=== PATIENT | male | born 1950 | race Hispanic/Latino ===

== ENCOUNTER 2017-07-02 15:35 | Observation (INO) | payer BC, OTHER ==
--- NOTE | 2017-07-02 16:17 | ED PDOC ---
HPI: Chest Pain Time Seen by Provider: 07/02/17 16:01 Chief Complaint (Nursing): Chest Pain Chief Complaint (Provider): CP History Per: Patient History/Exam Limitations: no limitations Additional Complaint(s): Pt reports midsternal CP X 5 days, intermittent, now radiating down L arm. Denies SOB, nausea, palpitations. Last stress test summer 2015. Also reports leg swelling X few months, no calf pain. Past Medical History Reviewed: Nursing Documentation, Vital Signs Vital Signs: Last Vital Signs Temp 974.7 F H 07/03/17 07:56 Pulse 76 07/03/17 07:56 Resp 18 07/03/17 07:56 BP 115/84 07/03/17 07:56 Pulse Ox 95 07/03/17 07:56 - Medical History PMH: Asthma, Rheumatoid Arthritis Denies: Chronic Kidney Disease Other PMH: Testicular CA, lymphoma - Surgical History Other surgeries: Tumor resection - Family History Family History: States: Unknown Family Hx - Social History Current smoker - smoking cessation education provided: No Alcohol: None - Immunization History Hx Tetanus Toxoid Vaccination: No Hx Influenza Vaccination: Yes Hx Pneumococcal Vaccination: No - Home Medications Home Medications: Ambulatory Orders Medication Instructions Recorded Testosterone [Androgel] 2.5 gm TD DAILY 08/09/16 Montelukast [Singulair] 10 mg PO HS #30 tab 08/10/16 Acetaminophen [Tylenol 325mg tab] 650 mg PO Q4 PRN 07/02/17 Mv,[place],Min/Iron/Folic Acid/Lut 1 tab PO DAILY 07/02/17 [Complete Multi Tablet] Polyethylene Glycol/Polyvinyl 1 drop RIGHTEYE BID 07/02/17 [Artificial Tears] Polyethylene Glycol/Polyvinyl 1 drop RIGHTEYE DAILY PRN 07/02/17 [Artificial Tears] Aspirin [Ecotrin] 81 mg PO DAILY #30 tabec 07/03/17 - Allergies Allergies/Adverse Reactions: Allergies Allergy/AdvReac Type Severity Reaction Status Date / Time No Known Allergies Allergy Verified 07/02/17 15:46 XIOMARA Risk Score for UA/NSTEMI - XIOMARA Risk Score Age > 64: YES 3 or more CAD Risk Factors: NO Known CAD (Stenosis greater than 50%): NO Aspirin use in past 7 days: NO Severe Angina: NO EKG ST changes greater than 0.5mm: NO Positive Cardiac Marker: NO XIOMARA Score: 1 Risk %: 5% Wells Criteria for PE - Wells Criteria for Pulmonary Embolism Clinical Signs and Symptoms of DVT: No P.E is #1 Diagnosis, or Equally Likely: No Heart Rate >100: No Immobilization at least 3 days;Surgery previous 4 weeks: No Previous, objectively diagnosed PE or DVT: No Hemoptysis: No Malignancy w/treatment within 6 months, or palliative: No Total Score: 0 Review of Systems Constitutional: Negative for: Fever, Chills Cardiovascular: Positive for: Chest Pain. Negative for: Palpitations Respiratory: Negative for: Cough, Shortness of Breath Gastrointestinal: Negative for: Nausea, Vomiting, Abdominal Pain, Diarrhea Genitourinary Male: Negative for: Dysuria, Hematuria Physical Exam - Reviewed Nursing Documentation Reviewed: Yes Vital Signs Reviewed: Yes - Physical Exam Appears: Positive for: Well, No Acute Distress Head Exam: Positive for: ATRAUMATIC Skin: Positive for: Normal Color, Warm, Dry Neck: Positive for: Normal Cardiovascular/Chest: Positive for: Regular Rate, Rhythm Respiratory: Positive for: Normal Breath Sounds. Negative for: Rales, Rhonchi, Wheezing Gastrointestinal/Abdominal: Positive for: Normal Exam, Bowel Sounds, Soft Back: Positive for: Normal Inspection Extremity: Positive for: Normal ROM, Pedal Edema, Swelling. Negative for: Tenderness, Calf Tenderness, Deformity Neurologic/Psych: Positive for: Alert, bolt loader II-XII, Oriented - Laboratory Results Result Diagrams: 07/02/17 16:20 07/02/17 16:20 - ECG Interpretation Of ECG: NSR @ 75, no ST-T changes. O2 Sat by Pulse Oximetry: 96 Pulse Ox Interpretation: Normal Medical Decision Making Medical Decision Makin yo male with chest pain. - labs - EKG - CXR Accession No. : [id number] Patient Name / ID : RACHELLE RUIZ / [id number] Exam Date : 07/02/2017 16:40:05 ( Approved ) Study Comment : Sex / Age : M / 66Y Creator : sudeep toribio Dictator : Personal Lines Account Manager : Business Functional Analyst : Quintin Lott MD Approver2 : Report Date : 07/02/2017 16:52:11 My Comment : HISTORY: CP COMPARISON: Comparison chest dated 08/23/2014 FINDINGS: LUNGS: No acute consolidation however there may be some minimal bibasilar scarring PLEURA: No significant pleural effusion identified, no pneumothorax apparent. CARDIOVASCULAR: Sternotomy wires again noted. OSSEOUS STRUCTURES: No old fracture deformity left anterior 2nd rib, left posterior 3rd rib and left clavicle unchanged VISUALIZED UPPER ABDOMEN: Normal. OTHER FINDINGS: None. IMPRESSION: Suspect minimal bibasilar scarring. No other significant changes. Disposition - Clinical Impression Clinical Impression: Chest pain - Patient ED Disposition Is Patient to be Admitted: Yes - Disposition Disposition Time: 18:58 Condition: STABLE - Pt Status Changed To: Hospital Disposition Of: Observation - POA Present On Arrival: None
[2017-07-02 16:54] LABS: INR 1.1 (0.9-1.2); PARTIAL THROMBOPLASTIN TIME 38.8 Seconds (25.6-37.1); PROTHROMBIN TIME 12.7 Seconds (9.8-13.1)
[2017-07-02 16:55] LABS: BASO % 0.3 % (0.0-2.0); EOS # 0.2 K/uL (0.0-0.7); EOS % 3.9 % (0.0-4.0); HEMOGLOBIN 15.8 g/dL (12.0-18.0); LYMPH # 0.8 K/uL (1.0-4.3); LYMPH % 14.6 % (20.0-40.0); MEAN CELL VOLUME 94.9 fl (80.0-94.0); MEAN CORPUSCULAR HEMOGLOBIN 31.8 pg (27.0-31.0); MEAN CORPUSCULAR HGB CONC 33.5 g/dL (33.0-37.0); MEAN PLATELET VOLUME 10.8 fl (7.2-11.7); MONO # 0.6 K/uL (0.0-0.8); MONO % 10.1 % (0.0-10.0); NEUT # 4.1 K/uL (1.8-7.0); NEUT % 71.1 % (50.0-75.0); NRBC % 0.1 % (0.0-0.0); RBC 4.99 Mil/uL (4.40-5.90); WHITE BLOOD COUNT 5.8 K/uL (4.8-10.8)
[2017-07-02 17:00] LABS: ALB/GLOB RATIO 1.5 (1.0-2.1); ALBUMIN 4.1 g/dL (3.5-5.0); ALT/SGPT 44 U/L (21-72); AST/SGOT 24 U/L (17-59); BLOOD UREA NITROGEN 17 mg/dl (9-20); GFR AFRICAN-AMERICAN > 60; GFR NON-AFRICAN AMERICAN > 60
--- NOTE | 2017-07-02 17:09 | RAD ---
HISTORY: CP COMPARISON: Comparison chest dated 08/23/2014 FINDINGS: LUNGS: No acute consolidation however there may be some minimal bibasilar scarring PLEURA: No significant pleural effusion identified, no pneumothorax apparent. CARDIOVASCULAR: Sternotomy wires again noted. OSSEOUS STRUCTURES: No old fracture deformity left anterior 2nd rib, left posterior 3rd rib and left clavicle unchanged VISUALIZED UPPER ABDOMEN: Normal. OTHER FINDINGS: None. IMPRESSION: Suspect minimal bibasilar scarring. No other significant changes.
[2017-07-02 17:34] LABS: CALCIUM 8.9 mg/dL (8.4-10.2)
[2017-07-02 17:35] LABS: URINE BACTERIA RARE (<OCC); URINE BILIRUBIN NEGATIVE (NEGATIVE); URINE BLOOD NEGATIVE (NEGATIVE); URINE CLARITY CLEAR (Clear); URINE COLOR COLORLESS (YELLOW); URINE GLUCOSE (UA) NEG (Normal); URINE LEUKOCYTE ESTERASE NEG Leu/uL (Negative); URINE PROTEIN NEGATIVE (NEGATIVE); URINE UROBILINOGEN 0.2-1.0 mg/dL (0.2-1.0)
--- NOTE | 2017-07-02 18:34 | US ---
PROCEDURE: Bilateral lower extremity venous duplex Doppler. HISTORY: Leg swelling COMPARISON: None available. TECHNIQUE: Bilateral common femoral, superficial femoral, popliteal and posterior tibial veins were evaluated. Flow was assessed with color Doppler, compressibility, assessment of phasic flow and augmentation response. FINDINGS: COMMON FEMORAL VEIN: Right CFV: Unremarkable. Left CFV: Unremarkable. SUPERFICIAL FEMORAL VEIN: Right SFV: Unremarkable. Left SFV: Unremarkable. POPLITEAL VEIN: Right Popliteal: Unremarkable. Left Popliteal: Unremarkable. POSTERIOR TIBIAL VEIN: Right PTV: Unremarkable. Left PTV: Unremarkable. OTHER FINDINGS: None. IMPRESSION: No evidence of deep venous thrombosis.
[2017-07-02 22:21] VITALS: RESP 18
[2017-07-02] MEDS ORDERED: Artificial Tears Opht Soln OD PRN (23:54)
[2017-07-03 05:57] LABS: HDL CHOLESTEROL 33 MG/DL (30-70)
[2017-07-03 06:09] LABS: LDL CHOLESTEROL 66 mg/dL (0-129)
[2017-07-03 06:13] LABS: T4 4.98 ug/dl (5.5-11.0)
[2017-07-03 07:56] VITALS: BP 115/84; PULSE 76; TEMP 974.7
--- NOTE | 2017-07-03 08:56 | CP.PCM.CON ---
History of Present Illness - History of Present Illness History of Present Illness: This 66-year-old otherwise healthy patient came into the emergency room after experiencing a vague sense of chest discomfort in the middle of the chest for almost 6 days off and on (according to the patient almost continuously) quite unaffected by physical activities such as walking 5-6 blocks or climbing couple flights of stairs to get to his apartment. He has never been a smoker. He was treated for hypertension. His back but has been off of any medications for a few years. He has never been a diabetic. He has never experienced any effort related chest pain or prior myocardial infarction. He denies any past history of significant medical issues. His father had coronary bypass graft surgery. Otherwise there is nobody in the family with vascular issues. Physical examination shows a middle aged pleasant man alert awake and coherent. Afebrile with a pulse rate of 68 bpm and regular and a blood pressure of 116/70 mmHg. His jugular venous pressure was not elevated and there was no edema hour his lower extremities. The pedal pulses were well felt. There were no carotid bruits. The extremities were warm and his nailbeds were pink. There was no central or peripheral cyanosis. His respiratory rate was 14 breaths per minute. The apex was not palpable. The first and second heart sounds were normal. There was no gallop and there were no murmurs. Abdomen was soft liver and spleen are not palpable. Electro-cardiogram at admission to the emergency room showed sinus rhythm with a normal EKG pattern. An electro-cardiogram done this morning again shows sinus rhythm with a normal EKG pattern. There is no ischemic changes and no Q waves detected on the electric cardiogram. 2 sets of cardiac enzymes were negative for any evidence of myocyte injury per the area and the rest of his lab data was noted Impression: Atypical chest pain. No evidence of acute coronary syndrome. The patient is chest pain-free and hemodynamically stable and may be allowed to return home to continue management as an outpatient. 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) - RENAL Hx Chronic Kidney Disease: No - ENDOCRINE/METABOLIC Hx Endocrine Disorders: No - HEMATOLOGICAL/ONCOLOGICAL Hx Blood Disorders: No - INTEGUMENTARY Hx Dermatological Problems: No - MUSCULOSKELETAL/RHEUMATOLOGICAL Hx Musculoskeletal Disorders: Yes Hx Falls: No Hx Rheumatoid Arthritis: Yes - GASTROINTESTINAL Hx Gastrointestinal Disorders: No - GENITOURINARY/GYNECOLOGICAL Hx Genitourinary Disorders: Yes Other/Comment: testicular ca - PSYCHIATRIC Hx Psychophysiologic Disorder: No Hx Substance Use: No - SURGICAL HISTORY Hx Surgeries: Yes Other/Comment: Right Orchiectomy,,, RIGHT EYE LID LYMPHOMA - ANESTHESIA Hx Anesthesia: Yes Hx Anesthesia Reactions: No Hx Malignant Hyperthermia: No Has any member of the family had a problem w/ anesthesia?: No Meds Allergies/Adverse Reactions: Allergies Allergy/AdvReac Type Severity Reaction Status Date / Time No Known Allergies Allergy Verified 07/02/17 15:46 - Medications Medications: Current Medications Acetaminophen (Tylenol 325mg Tab) 650 mg PO Q4 PRN PRN Reason: Pain, moderate (4-7) Artificial Tears (Artificial Tears) 1 drop OD BID [facility] Last Admin: 07/03/17 08:48 Dose: 1 drop Artificial Tears (Artificial Tears) 1 drop OD DAILY PRN PRN Reason: Itching / Pruritus Aspirin (Ecotrin) 81 mg PO DAILY [facility] Last Admin: 07/03/17 08:49 Dose: 81 mg Enoxaparin Sodium (Lovenox) 40 mg SC DAILY [facility] PRN Reason: Protocol Last Admin: 07/03/17 08:47 Dose: 40 mg Montelukast Sodium (Singulair) 10 mg PO [facility] Results - Vital Signs Recent Vital Signs: Last Vital Signs Temp 974.7 F H 07/03/17 07:56 Pulse 76 07/03/17 07:56 Resp 18 07/03/17 07:56 BP 115/84 07/03/17 07:56 Pulse Ox 95 07/03/17 07:56 - Labs Result Diagrams: 07/02/17 16:20 07/02/17 16:20 Labs: Laboratory Results - last 24 hr 07/02/17 07/02/17 07/02/17 16:20 16:20 16:20 WBC 5.8 RBC 4.99 Hgb 15.8 Hct 47.3 MCV 94.9 H MCH 31.8 H MCHC 33.5 RDW 13.0 Plt Count 137 MPV 10.8 Neut % (Auto) 71.1 Lymph % (Auto) 14.6 L [place] % (Auto) 10.1 H Eos % (Auto) 3.9 Baso % (Auto) 0.3 Neut # (Auto) 4.1 Lymph # (Auto) 0.8 L [place] # (Auto) 0.6 Eos # (Auto) 0.2 Baso # (Auto) 0.0 PT 12.7 INR 1.1 APTT 38.8 H D-Dimer, Quantitative 163 Sodium 143 Potassium 4.2 Chloride 103 Carbon Dioxide 28 Anion Gap 16 BUN 17 Creatinine 1.1 Est GFR ( Amer) > 60 Est GFR (Non-Af Amer) > 60 Random Glucose 93 Calcium 8.9 Total Bilirubin 0.3 AST 24 ALT 44 Alkaline Phosphatase 48 Troponin I < 0.0120 Total Protein 6.8 Albumin 4.1 Globulin 2.7 Albumin/Globulin Ratio 1.5 Triglycerides Cholesterol LDL Cholesterol Direct HDL Cholesterol Thyroxine (T4) TSH 3rd Generation Urine Color Urine Clarity Urine pH Ur Specific [place] Urine Protein Urine Glucose (UA) Urine Ketones Urine Blood Urine Nitrate Urine Bilirubin Urine Urobilinogen Ur Leukocyte Esterase Urine RBC (Auto) Urine Microscopic WBC Urine Bacteria 07/02/17 07/03/17 17:10 04:20 WBC RBC Hgb Hct MCV MCH MCHC RDW Plt Count MPV Neut % (Auto) Lymph % (Auto) [place] % (Auto) Eos % (Auto) Baso % (Auto) Neut # (Auto) Lymph # (Auto) [place] # (Auto) Eos # (Auto) Baso # (Auto) PT INR APTT D-Dimer, Quantitative Sodium Potassium Chloride Carbon Dioxide Anion Gap BUN Creatinine Est GFR ( Amer) Est GFR (Non-Af Amer) Random Glucose Calcium Total Bilirubin AST ALT Alkaline Phosphatase Troponin I < 0.0120 Total Protein Albumin Globulin Albumin/Globulin Ratio Triglycerides 73 Cholesterol 116 LDL Cholesterol Direct 66 HDL Cholesterol 33 Thyroxine (T4) 4.98 L TSH 3rd Generation 2.61 Urine Color Colorless Urine Clarity Clear Urine pH 6.0 Ur Specific [place] < 1.005 Urine Protein Negative Urine Glucose (UA) Neg Urine Ketones Negative Urine Blood Negative Urine Nitrate Negative Urine Bilirubin Negative Urine Urobilinogen 0.2-1.0 Ur Leukocyte Esterase Neg Urine RBC (Auto) 2 Urine Microscopic WBC < 1 Urine Bacteria Rare
[2017-07-03] MEDS ORDERED: Enoxaparin 40 mg Syringe SC SCH (09:00)
[2017-07-03] MEDS ORDERED: Artificial Tears Opht Soln OD SCH (09:00)
--- NOTE | 2017-07-03 09:25 | CP.PCM.DIS ---
Provider - Provider Date of Admission: 07/02/17 18:58 Attending physician: Renzo Araujo MD Time Spent in preparation of Discharge (in minutes): 35 Diagnosis - Discharge Diagnosis (1) Chest pain Status: Acute Hospital Course - Lab Results Lab Results: Most Recent Lab Values WBC 5.8 K/uL (4.8-10.8) 07/02/17 16:20 RBC 4.99 Mil/uL (4.40-5.90) 07/02/17 16:20 Hgb 15.8 g/dL (12.0-18.0) 07/02/17 16:20 Hct 47.3 % (35.0-51.0) 07/02/17 16:20 MCV 94.9 fl (80.0-94.0) H 07/02/17 16:20 MCH 31.8 pg (27.0-31.0) H 07/02/17 16:20 MCHC 33.5 g/dL (33.0-37.0) 07/02/17 16:20 RDW 13.0 % (11.5-14.5) 07/02/17 16:20 Plt Count 137 K/uL (130-400) 07/02/17 16:20 MPV 10.8 fl (7.2-11.7) 07/02/17 16:20 Neut % (Auto) 71.1 % (50.0-75.0) 07/02/17 16:20 Lymph % (Auto) 14.6 % (20.0-40.0) L 07/02/17 16:20 Will % (Auto) 10.1 % (0.0-10.0) H 07/02/17 16:20 Eos % (Auto) 3.9 % (0.0-4.0) 07/02/17 16:20 Baso % (Auto) 0.3 % (0.0-2.0) 07/02/17 16:20 Neut # (Auto) 4.1 K/uL (1.8-7.0) 07/02/17 16:20 Lymph # (Auto) 0.8 K/uL (1.0-4.3) L 07/02/17 16:20 Will # (Auto) 0.6 K/uL (0.0-0.8) 07/02/17 16:20 Eos # (Auto) 0.2 K/uL (0.0-0.7) 07/02/17 16:20 Baso # (Auto) 0.0 K/uL (0.0-0.2) 07/02/17 16:20 PT 12.7 Seconds (9.8-13.1) 07/02/17 16:20 INR 1.1 (0.9-1.2) 07/02/17 16:20 APTT 38.8 Seconds (25.6-37.1) H 07/02/17 16:20 D-Dimer, Quantitative 163 ng/mlDDU (0-230) 07/02/17 16:20 Sodium 143 mmol/l (132-148) 07/02/17 16:20 Potassium 4.2 MMOL/L (3.6-5.0) 07/02/17 16:20 Chloride 103 mmol/L (98-107) 07/02/17 16:20 Carbon Dioxide 28 mmol/L (22-30) 07/02/17 16:20 Anion Gap 16 (10-20) 07/02/17 16:20 BUN 17 mg/dl (9-20) 07/02/17 16:20 Creatinine 1.1 mg/dl (0.8-1.5) 07/02/17 16:20 Est GFR ( Amer) > 60 07/02/17 16:20 Est GFR (Non-Af Amer) > 60 07/02/17 16:20 Random Glucose 93 mg/dL (75-110) 07/02/17 16:20 Calcium 8.9 mg/dL (8.4-10.2) 07/02/17 16:20 Total Bilirubin 0.3 mg/dl (0.2-1.3) 07/02/17 16:20 AST 24 U/L (17-59) 07/02/17 16:20 ALT 44 U/L (21-72) 07/02/17 16:20 Alkaline Phosphatase 48 U/L (38-126) 07/02/17 16:20 Troponin I < 0.0120 ng/mL (0.00-0.120) 07/03/17 04:20 Total Protein 6.8 G/DL (6.3-8.2) 07/02/17 16:20 Albumin 4.1 g/dL (3.5-5.0) 07/02/17 16:20 Globulin 2.7 gm/dL (2.2-3.9) 07/02/17 16:20 Albumin/Globulin Ratio 1.5 (1.0-2.1) 07/02/17 16:20 Triglycerides 73 mg/DL (0-149) 07/03/17 04:20 Cholesterol 116 mg/dL (0-199) 07/03/17 04:20 LDL Cholesterol Direct 66 mg/dL (0-129) 07/03/17 04:20 HDL Cholesterol 33 MG/DL (30-70) 07/03/17 04:20 Thyroxine (T4) 4.98 ug/dl (5.5-11.0) L 07/03/17 04:20 TSH 3rd Generation 2.61 mIU/ML (0.46-4.68) 07/03/17 04:20 Urine Color Colorless (YELLOW) 07/02/17 17:10 Urine Clarity Clear (Clear) 07/02/17 17:10 Urine pH 6.0 (5.0-8.0) 07/02/17 17:10 Ur Specific [place] < 1.005 (1.003-1.030) 07/02/17 17:10 Urine Protein Negative mg/dL (NEGATIVE) 07/02/17 17:10 Urine Glucose (UA) Neg mg/dL (Normal) 07/02/17 17:10 Urine Ketones Negative mg/dL (NEGATIVE) 07/02/17 17:10 Urine Blood Negative (NEGATIVE) 07/02/17 17:10 Urine Nitrate Negative (NEGATIVE) 07/02/17 17:10 Urine Bilirubin Negative (NEGATIVE) 07/02/17 17:10 Urine Urobilinogen 0.2-1.0 mg/dL (0.2-1.0) 07/02/17 17:10 Ur Leukocyte Esterase Neg [place]/uL (Negative) 07/02/17 17:10 Urine RBC (Auto) 2 /hpf (0-3) 07/02/17 17:10 Urine Microscopic WBC < 1 /hpf (0-5) 07/02/17 17:10 Urine Bacteria Rare (<OCC) 07/02/17 17:10 - Hospital Course Hospital Course: chest pain resolved cardiac workup--non-revealing cardiac enzymes negative Discharge Exam - Head Exam Head Exam: ATRAUMATIC - Eye Exam Eye Exam: EOMI, Normal appearance, PERRL Pupil Exam: NORMAL ACCOMODATION, PERRL - GI/Abdominal Exam GI & Abdominal Exam: Normal Bowel Sounds - Rectal Exam Rectal Exam: NORMAL INSPECTION - Neurological Exam Neurological exam: Alert, CN II-XII Intact, Normal Gait, Oriented x3, Reflexes Normal - Psychiatric Exam Psychiatric exam: Normal Affect, Normal Mood - Skin Skin Exam: Dry, Intact, Normal Color, Warm Discharge Plan - Follow Up Plan Condition: GOOD Disposition: HOME/ ROUTINE Patient education suggested?: Yes Additional Instructions: discharge today follow up with dr montaño for stress test
--- NOTE | 2017-07-03 09:48 | CARD ---
APPROVED REPORT EKG Measurement Heart [id number] <Conclusion> Normal sinus rhythm Low voltage QRS Borderline ECG
--- NOTE | 2017-07-03 09:55 | CARD ---
APPROVED REPORT EKG Measurement Heart [id number] <Conclusion> Normal sinus rhythm Normal ECG
--- NOTE | 2017-07-03 10:41 | HP ---
HISTORY OF PRESENT ILLNESS: Mr. Pak is a 66 year-old male who was admitted via the Emergency Room because of vague chest discomfort for the past 5-6 days prior to presentation. He indicates that symptoms have persisted especially worse on exertion. He came to the Emergency Room where he was admitted to rule out acute coronary syndrome. He indicates that he has had similar episodes in the past, especially when his father had heart attack years ago and he had a stress test done that was non-revealing. PAST MEDICAL HISTORY: He has a past medical history that is remarkable for blood pressure that is controlled with diet. FAMILY HISTORY: Remarkable for father who had cardiac disease. SOCIAL HISTORY: Socially, he does not smoke or drink and lives alone. REVIEW OF SYSTEMS: Essentially unremarkable. PHYSICAL EXAMINATION: GENERAL: The patient is alert, oriented, and appears to be in no apparent distress at present. VITAL SIGNS: Blood pressure of 115/84, pulse of 76, and respiratory rate of 18. He is febrile. O2 sat is 95% on room air. SKIN: Shows fair turgor. HEENT: Pupils are equal and reactive to light and accommodation. Mouth shows fair hygiene. JVP flat. LUNGS: Clear. HEART: Regular. No murmurs or gallops. ABDOMEN: Soft and nontender, no organomegaly. EXTREMITIES: Show no edema or cyanosis. CENTRAL NERVOUS SYSTEM: Grossly intact. LABORATORY DATA: WBC 5.8, hemoglobin 15.8, and platelet count 137,000. Sodium 143, potassium 4.2, BUN 17, and creatinine 1.1. Troponin less than 0.012 x2. Cholesterol 116 and LDL 66. EKG official report pending, but reviewed by me shows normal sinus rhythm. Chest x-ray; suspect minimal bibasilar scarring, otherwise, unremarkable. IMPRESSION AND PLAN: Chest pain, probably atypical, does not appear to be related to cardiac origin. The patient is already cleared by cardiology for discharge. The plan is to have the patient discharged today. He will follow up with this primary care doctor, Dr. Boucher to arrange for outpatient stress test. He is also advised to take a baby aspirin once a day. Renzo Araujo MD [facility] # [id number]
[2017-07-05 11:24] VITALS: O2SAT 96
== END 2017-07-03 10:55 | disposition home or self-care (01) ==
LOC: H.ER 15:35 → H.ERHOLD 18:58 → H.TEL 21:15
PROVIDERS: ADMIT Internal Medicine Pulmonary Disease; ATTEND Internal Medicine Pulmonary Disease
DX: R07.89 Other chest pain (principal); J45.909 Unspecified asthma, uncomplicated; M06.9 Rheumatoid arthritis, unspecified; H91.93 Unspecified hearing loss, bilateral; Z79.82 Long term (current) use of aspirin; Z85.47 Personal history of malignant neoplasm of testis; Z85.72 Personal history of non-Hodgkin lymphomas
CPT/HCPCS: 36415; 71045; 80053; 80061; 81003; 84436; 84443; 84484; 85025; 85378; 85610; 85730; 93005; 93970; 99285; G0378; J1650